=== PATIENT | female | born 1965 | race African-American/Black ===

== ENCOUNTER → 2023-09-18 17:13 | Outpatient (REF) | payer OTHER, SELFPAY | LOC: WDC 17:13 | PROVIDERS: ATTENDING PHYSICIAN Obstetrics & Gynecology; FAMILY PHYSICIAN Internal Medicine | DX: Z12.31 Encounter for screening mammogram for malignant neoplasm of breast (principal) | CPT/HCPCS: 77063; 77067 ==

== ENCOUNTER → 2024-12-19 15:53 | Outpatient (REF) | payer OTHER, SELFPAY | LOC: WDC 15:53 | PROVIDERS: ATTENDING PHYSICIAN Obstetrics & Gynecology; FAMILY PHYSICIAN Internal Medicine | DX: Z12.31 Encounter for screening mammogram for malignant neoplasm of breast (principal) | CPT/HCPCS: 77063; 77067 ==